=== PATIENT | female | born 1965 | race Caucasian/White ===

== ENCOUNTER 2017-10-11 17:05 | Inpatient (IN) | payer OTHER ==
[~2017-10-11] VITALS: Ht 170.2 cm; Wt 105.2 kg
--- NOTE | ~2017-10-11 | OP ---
PATIENT NAME: ARGENIS LANCE MEDICAL RECORD: [id number] :63 [facility] ADMISSION DATE:10/11/17 SURGEON: JING ALICEA MD DATE OF OPERATION: 10/24/2017 SURGEON: Jing Alicea MD ANESTHESIA: General endotracheal, Dr. Nation. OPERATION PERFORMED: 1. Right thoracotomy and decortication of right lung. 2. Flexible fiberoptic bronchoscopy. 3. Mediastinal lymphadenectomy. PREOPERATIVE DIAGNOSIS: Empyema, right chest. POSTOPERATIVE DIAGNOSIS: Empyema, right chest with trapped lower and middle lobes. FINDINGS: Flexible fiberoptic bronchoscopy demonstrated normal tracheobronchial tree. ESTIMATED BLOOD LOSS: Less than 200 mL. DESCRIPTION OF PROCEDURE: After informed consent, adequate preoperative medication, and evaluation, the patient was brought to the operating room and placed on the table in the supine position. After induction of general endotracheal anesthesia and application of appropriate monitoring devices, flexible fiberoptic bronchoscopy and placement of a double lumen tube, the patient was turned in a left lateral decubitus position and right chest prepped and draped in sterile field utilizing Betadine scrub, alcohol, and Betadine solution. Betadine-impregnated drape was also used. An oblique incision was made in the right posterolateral chest. Dissection was carried down the fascia. Hemostasis was maintained with electrocautery. The sixth interspace was opened. The intercostal muscles were divided and the pleural space gently entered which was fused. An area posteriorly was entered and utilizing sharp and blunt dissection, the pleural rind was removed from the chest wall. A retractor was then placed in the wound and the chest explored more closely and the remainder of the adhesions on the lateral wall over the lower lobe and diaphragm were mobilized. After mobilization of the lower lobe, attention was turned toward the middle lobe which was fused anteriorly to the mediastinal pleura. These adhesions were lysed from the chest wall. Attention was then turned toward the upper lobe, which was entered through a posterior area with few adhesions and the entire lung mobilized. There was a dense fibrous peel on the middle and lower lobes. Utilizing sharp and blunt dissection, the rind was removed. Portions of the rind were densely adherent to the visceral pleura. The chest was irrigated with copious amounts of antibiotic solution and normal saline. Hemostasis was assured. A large lymph node in the level 7 area was then mobilized and removed and sent to pathology. Cultures were taken early in the procedure from the right hemithorax. Chest was again irrigated. Instrument count and sponge count were correct times 2. Two #32 chest tubes were placed, one anteriorly and superiorly and one inferiorly and posteriorly. Chest was again irrigated. Instrument count and sponge count were correct times 2. Chest closed in layers utilizing #2 Vicryl OPERATIVE REPORT [id number] FARINA,ARGENIS pericostal sutures, #1 Vicryl on the muscle, 2-0 Vicryl on subcutaneous tissue and the skin was approximated with 3-0 subcuticular Vicryl. Sterile dressings were applied. The patient was turned in a supine position and underwent flexible fiberoptic bronchoscopy once again with a normal tracheobronchial tree and no excessive secretions. The patient was then awakened and transferred to the CV ICU in satisfactory condition. TRANSINT:[id number] Voice Confirmation ID: [id number] DOCUMENT ID: [id number] JING ALICEA MD at 1200 CC: [id number] DICTATION DATE: 10/24/17 1532 BLOG WRITER: 10/24/17 1812 ADM IN [facility] [address] [place] [address]
--- NOTE | ~2017-10-11 | EC ---
PATIENT:ARGENIS LANCE DATE OF SERVICE: 10/11/17 SEX: F MEDICAL RECORD: [id number] DATE OF : 63 LOCATION:[facility] AGE OF PATIENT: 52 ADMISSION DATE: 10/11/17 REFERRING PHYSICIAN: INTERPRETING PHYSICIAN: NIDIA LEE MD ECHOCARDIOGRAM REPORT ECHO CHARGES 5 ECHO LIMITED Date: 10/13 CLINICAL DIAGNOSIS: CHF ECHOCARDIOGRAPHIC MEASUREMENTS (adult normal given) AC root (d.<3.7cm) 4.0 cm LV Septum d (<1.2 cm> 1.6 cm Valve Excursion 1.5 cm LV Septum (systole) 1.9 cm Left Atria (s.<4.0cm> 3.2 cm LVPW d(<1.2cm) 1.9 cm RV (d.<2.3cm) 3.9 cm LVPW (sytole) 2.0 cm LV diastole(<5.6CM) 4.1 cm MV E-F(>70mm/sec) cm LV systole 2.6 cm LVOT Diameter cm MV exc.(>10mm) 1.9 cm Est.ejection fraction (50-75%) % DOPPLER: LVIT cm/sec A cm/sec E cm/sec LA cm/sec RVSP mmHg LVOT cm/sec AOP1/2T m/s Asc. Ao cm/sec RVOT cm/sec RA cm/sec PA cm/sec AV Gradient Peak mmHg AV Mean mmHg AV Area cm MV Gradient Peak mmHg MV Mean mmHg MV Area cm COMMENTS: Vice President Of Recruiting: Stephanie BERNARDO Travel Attendants: 3 Dr. Thompson TAPE# PACS Pericardial Effusion N DATE OF SERVICE: 10/13/2017 PROCEDURE: Echocardiogram. FINDINGS: 1. Left ventricular chamber size is within normal limits. Left ventricular systolic function is normal. Overall ejection fraction estimated at 60%. 2. Left atrium, right atrium, and right ventricle chamber sizes are within normal limits. 3. Valvular structures have normal structure and motion. ECHOCARDIOGRAM REPORT [id number] ARGENIS LANCE 4. Doppler interrogation reveals no significant valvular insufficiency or stenosis. 5. No evidence of pericardial effusion or left ventricular thrombus. TRANSINT:[id number] Voice Confirmation ID: [id number] DOCUMENT ID: [id number] NIDIA LEE MD at 0751 CC: [id number] DICTATION DATE: 10/13/17 1213 [place] ATTENDANT: 10/13/17 1230 ADM IN [facility] [address] [place] [id number]
--- NOTE | ~2017-10-11 | OP ---
PATIENT NAME: ARGENIS LANCE MEDICAL RECORD: [id number] :63 LOCATION:[facility] ADMISSION DATE:10/11/17 SURGEON: BOSSMAN THOMAS MD DATE OF OPERATION: 10/19/2017 PROCEDURE: Fiberoptic bronchoscopy. INDICATION: Ms. Lance was admitted with empyema of the right side. She has chest tube placement, but there was nonresolving pleural fluid. Fiberoptic bronchoscopy was carried out to look for any mucus plugging, endobronchial lesions. PROCEDURE: After obtaining conscious sedation with the help of TIVA, the fiberoptic bronchoscope was passed through the mouth. The epiglottis was normal. The vocal cords were normal, moving equally on phonation. The main trachea was normal. The german was sharp. The subsegment to the right upper lobe, right lower lobe, right middle lobe within normal range. There was a white yellowish mucus secretion, but there was no mucus plugging. The left main bronchus was normal. The subsegment to the left upper lobe, left lower lobe within normal range. No endobronchial lesion was seen. Specimen washing was obtained and sent for routine culture and sensitivity, AFB, and fungus. Overall, the patient tolerated the procedure very well. MONITORING: EKG, pulse, blood pressure, SpO2 were monitored throughout the procedure. TRANSINT:[id number] Voice Confirmation ID: [id number] DOCUMENT ID: [id number] BOSSMAN THOMAS MD at 1806 CC: [id number] DICTATION DATE: 10/19/17 1453 SKIVER MACHINE: 10/19/17 1518 DIS IN 11/01/17 [place] [id number] [place] [id number]
--- NOTE | ~2017-10-11 | CN ---
PATIENT NAME:ARGENIS HARRIS MEDICAL RECORD: [id number] : 63 LOCATION:[facility] ADMIT DATE: 10/11/17 ACCOUNT: [id number] CONSULTING PHYSICIAN: BOSSMAN THOMAS MD REFERRING PHYSICIAN: ANSELMO EMMANUEL MD DATE OF CONSULTATION: 10/19/2017 CONSULT REQUESTING PHYSICIAN: Junior Holguin DO REASON FOR CONSULTATION: Pneumonia, empyema. HISTORY OF PRESENT ILLNESS: Ms. Harris is a 52-year-old female who was transferred from another facility for possible cholecystitis. Chest radiograph showed she had pneumonia, underwent thoracentesis, it showed a LDH in 8000. Now, the patient does have shortness of breath, but the pleural fluid is not resolving with a chest tube. I was requested if I could do the bronchoscopy to look for any atelectasis. REVIEW OF SYSTEMS: As in history of present illness. PAST MEDICAL HISTORY: 1. COPD. 2. Hypertension. 3. Congestive heart failure. 4. Diabetes mellitus. PAST SURGICAL HISTORY: She has . ALLERGIES: No known drug allergy. PRESENT MEDICATIONS: RJMetricstech is reviewed. PERSONAL AND SOCIAL HISTORY: She is still a current everyday smoker. She is drinker. FAMILY HISTORY: Significant for cancer. PHYSICAL EXAMINATION: GENERAL: Now, the patient is lying comfortably in bed. She is not in acute distress. VITAL SIGNS: The blood pressure is 164/79, pulse is 75, respiration 18, temperature is 97.9, SpO2 95% on 4.5 liters nasal cannula. HEENT: Conjunctivae are pink. Sclerae are not icteric. NECK: Supple, no JVD. CHEST: The chest excursion is minimal on the right side. There is dullness on percussion with crackles. Chest tube is in place. HEART: Rhythm regular, normal sound, no murmur. ABDOMEN: Soft, bowel sounds present. No hepatosplenomegaly. RECTAL: Deferred. EXTREMITIES: No cyanosis, no clubbing, no pedal edema. SKIN: Warm, normal turgor. CENTRAL NERVOUS SYSTEM: The patient is awake and alert. There is no obvious cranial nerve abnormality. The gait was not tested. LABORATORY DATA: CBC: WBC 10.3, hemoglobin 10.2, hematocrit 31, the platelet CONSULT REPORT [id number] FARINA,ARGENIS count 407. Chemistry: Sodium 139, potassium 3.2, BUN is 10, creatinine 1.2. Pleural fluid, the protein is 5.6, the glucose is 6. LDH is 8138. IMPRESSION: 1. Acute hypoxic respiratory failure. 2. Pneumonia, right lower lobe. 3. Parapneumonic pleural effusion. 4. Empyema on the right side, status post thoracotomy chest tube placement. 5. Acute exacerbation of chronic obstructive pulmonary disease. 5. Cholecystitis. RECOMMENDATION: 1. Continue antibiotic per Dr. Hughes. 2. Albuterol and ipratropium nebulizer. 3. Bronchoscopy today. Consult Dr. Mcdaniels for possible decortication. 4. The patient counseled to quit smoking. Follow up labs and chest radiograph. Dr. Holguin, thank you for involving me in the care of Ms. Harris. TRANSINT:[id number] Voice Confirmation ID: [id number] DOCUMENT ID: [id number] BOSSMAN THOMAS MD at 1806 CC: [id number] DICTATION DATE: 10/19/17 1449 GEOPHYSICS SCIENTIST: 10/19/17 1522 DIS IN 11/01/17 [facility] [address] [place] [address]
[2017-10-12 04:57] VITALS: BP 158/90
[2017-10-12 05:13] VITALS: BP 135/70; BMI 36.1
[2017-10-12 05:47] LABS: BASOPHILS 0.1 % (0-2); EOSINOPHILS 0.2 % (0-7); HEMATOCRIT 34.6 % (36.0-48.0); HEMOGLOBIN 11.8 g/dL (12-16); IMMATURE GRANULOCYTES 0.6 % (0-5); LYMPHOCYTES 7.1 % (15-50); MCH 29.7 pg (26.0-34.0); MCHC 34.1 g/dL (31.0-37.0); MCV 87.2 fL (80.0-100.0); MEAN PLATELET VOLUME 11.1 fL (7.4-10.4); MONOCYTES 6.1 % (2-11); NEUTROPHILS 85.9 % (40-80); PLATELET COUNT 411 10x3/uL (130-400); RBC 3.97 10x6/uL (4.00-5.40); RDW 13.9 % (11.5-14.5); WBC 22.2 10x3/uL (4.8-10.8)
[2017-10-12 05:49] LABS: ANION GAP 9.7 mmol/L (8-16); BILIRUBIN - TOTAL 0.5 mg/dL (0.2-1.3); CALCIUM 9.3 mg/dL (8.5-10.1); CARBON DIOXIDE 32.7 mmol/L (21.0-32.0); CREATININE - SERUM 1.3 mg/dL (0.6-1.3); POTASSIUM - SERUM 3.4 mmol/L (3.5-5.1); PROTEIN - SERUM 7.9 g/dL (6.4-8.2)
[2017-10-12 07:43] VITALS: BP 162/75
[2017-10-12] MEDS ORDERED: NORVASC10 MG PO (10:14)
[2017-10-12] MEDS ORDERED: HCTZ25 MG PO (10:14)
[2017-10-12] MEDS ORDERED: SPIRIVA18 MCG INH (10:14)
[2017-10-12] MEDS ORDERED: SYMBICORT 80-10.2 GM INH (10:15)
[2017-10-12] MEDS ORDERED: COZAAR100 MG PO (10:15)
[2017-10-12] MEDS ORDERED: COREG12.5 MG PO (10:16)
[2017-10-12] MEDS ORDERED: VENTOLIN HFA AER INH (10:17)
[2017-10-12 12:28] VITALS: BP 146/77
[2017-10-12 15:20] LABS: LIPASE 138 U/L (73-393); PRO BNP 842 pg/mL (0-125)
[2017-10-12 15:49] VITALS: BP 163/82
[2017-10-12 20:53] VITALS: BP 103/52
[2017-10-13 01:38] VITALS: BP 119/73
[2017-10-13 04:41] LABS: HEMATOCRIT 33.2 % (36.0-48.0); HEMOGLOBIN 11.2 g/dL (12-16); MCH 29.2 pg (26.0-34.0); MCHC 33.7 g/dL (31.0-37.0); MCV 86.5 fL (80.0-100.0); MEAN PLATELET VOLUME 11.1 fL (7.4-10.4); PLATELET COUNT 425 10x3/uL (130-400); RBC 3.84 10x6/uL (4.00-5.40); WBC 23.6 10x3/uL (4.8-10.8)
[2017-10-13 04:42] LABS: APTT 33.3 SECONDS (22.8-39.4); INR 1.17 (0.85-1.17); PROTIME 14.5 SECONDS (11.6-15.0)
[2017-10-13 04:50] LABS: CARBON DIOXIDE 30.6 mmol/L (21.0-32.0); CREATININE - SERUM 1.4 mg/dL (0.6-1.3); POTASSIUM - SERUM 3.6 mmol/L (3.5-5.1)
[2017-10-13 04:56] VITALS: BP 124/74
[2017-10-13 05:22] LABS: LYMPHOCYTES 14 % (15-50); MONOCYTES 3 % (2-11); NEUTROPHILS 81 % (40-80); PLATELET ESTIMATE NORMAL
[2017-10-13 07:51] VITALS: BP 117/71
[2017-10-13 12:10] VITALS: BP 112/76
[2017-10-13 15:39] VITALS: BP 117/84
[2017-10-13 20:00] VITALS: BP 109/74
[2017-10-14] VITALS: BP 101/43
[2017-10-14 04:00] VITALS: BP 100/61
[2017-10-14 08:10] VITALS: BP 102/63
[2017-10-14 12:40] VITALS: BP 119/61
[2017-10-14 15:43] LABS: PROTEIN - BODY FLUID 5.6 G/DL
[2017-10-14 19:34] LABS: MACROPHAGES BF 7 %; MESOTHELIALS BF 1 %; NEUT - BF 90 %
[2017-10-15] VITALS: BP 103/55
[2017-10-15 04:00] VITALS: BP 103/53
[2017-10-15 09:21] VITALS: BP 111/58
[2017-10-15 14:12] VITALS: BP 114/73
[2017-10-15 17:58] VITALS: BP 107/50
[2017-10-15 19:16] LABS: APPEARANCE HAZY (CLEAR); BILIRUBIN NEGATIVE (NEGATIVE); COLOR YELLOW (YELLOW); GLUCOSE NEGATIVE (NEGATIVE); KETONE NEGATIVE (NEGATIVE); NITRITE NEGATIVE (NEGATIVE); PROTEIN TRACE mg/dL (NEGATIVE); UROBILINOGEN NORMAL (NORMAL)
[2017-10-15 19:21] LABS: BACTERIA FEW /hpf (NONE SEEN); EPITHELIAL CELLS 0-5 /hpf (0-5); RED CELLS - URINE 0-5 /hpf (0-5); WHITE CELLS - URINE 0-5 /hpf (0-5)
[2017-10-15 19:31] LABS: URIC ACID CRYSTALS 25-50 /hpf (NONE SEEN)
[2017-10-15 21:15] VITALS: BP 138/64
[2017-10-16 04:33] VITALS: BP 139/86
[2017-10-16 07:09] LABS: ANION GAP 8.5 mmol/L (8-16); CALCIUM 8.4 mg/dL (8.5-10.1); CARBON DIOXIDE 31.5 mmol/L (21.0-32.0); CREATININE - SERUM 1.4 mg/dL (0.6-1.3)
[2017-10-16 07:49] LABS: BASOPHILS 0.3 % (0-2); EOSINOPHILS 1.2 % (0-7); HEMATOCRIT 32.7 % (36.0-48.0); HEMOGLOBIN 10.9 g/dL (12-16); IMMATURE GRANULOCYTES 1.6 % (0-5); LYMPHOCYTES 16.7 % (15-50); MCH 29.1 pg (26.0-34.0); MCHC 33.3 g/dL (31.0-37.0); MCV 87.2 fL (80.0-100.0); MEAN PLATELET VOLUME 11.2 fL (7.4-10.4); MONOCYTES 7.8 % (2-11); NEUTROPHILS 72.4 % (40-80); PLATELET COUNT 420 10x3/uL (130-400); RBC 3.75 10x6/uL (4.00-5.40); RDW 14.2 % (11.5-14.5); WBC 10.4 10x3/uL (4.8-10.8)
[2017-10-16 08:48] VITALS: BP 120/63
[2017-10-16 11:51] VITALS: BP 118/73
[2017-10-16 16:58] VITALS: BP 119/72
[2017-10-16 21:36] VITALS: BP 139/66
[2017-10-17 02:15] VITALS: BP 117/74
[2017-10-17 04:39] VITALS: BP 112/68
[2017-10-17 07:47] LABS: BASOPHILS 0.3 % (0-2); EOSINOPHILS 1.2 % (0-7); HEMATOCRIT 30.4 % (36.0-48.0); HEMOGLOBIN 9.9 g/dL (12-16); IMMATURE GRANULOCYTES 1.2 % (0-5); LYMPHOCYTES 17.5 % (15-50); MCH 28.5 pg (26.0-34.0); MCHC 32.6 g/dL (31.0-37.0); MCV 87.6 fL (80.0-100.0); MEAN PLATELET VOLUME 10.6 fL (7.4-10.4); MONOCYTES 7.1 % (2-11); NEUTROPHILS 72.7 % (40-80); PLATELET COUNT 393 10x3/uL (130-400); RBC 3.47 10x6/uL (4.00-5.40); RDW 14.3 % (11.5-14.5); WBC 10.5 10x3/uL (4.8-10.8)
[2017-10-17 07:50] LABS: ANION GAP 10.7 mmol/L (8-16); CALCIUM 8.1 mg/dL (8.5-10.1); CARBON DIOXIDE 30.9 mmol/L (21.0-32.0); CREATININE - SERUM 1.1 mg/dL (0.6-1.3)
[2017-10-17 07:55] LABS: POTASSIUM - SERUM 3.6 mmol/L (3.5-5.1)
[2017-10-17 09:52] VITALS: BP 122/72
[2017-10-17 14:54] VITALS: BP 151/73
[2017-10-17 18:48] VITALS: BP 123/66
[2017-10-18 01:35] VITALS: BP 146/72
[2017-10-18 04:00] VITALS: BP 132/69
[2017-10-18 05:11] LABS: BASOPHILS 0.4 % (0-2); EOSINOPHILS 2.1 % (0-7); HEMATOCRIT 29.1 % (36.0-48.0); HEMOGLOBIN 9.4 g/dL (12-16); IMMATURE GRANULOCYTES 1.3 % (0-5); LYMPHOCYTES 15.1 % (15-50); MCH 28.5 pg (26.0-34.0); MCHC 32.3 g/dL (31.0-37.0); MCV 88.2 fL (80.0-100.0); MEAN PLATELET VOLUME 10.4 fL (7.4-10.4); MONOCYTES 7.2 % (2-11); NEUTROPHILS 73.9 % (40-80); PLATELET COUNT 372 10x3/uL (130-400); RDW 14.3 % (11.5-14.5); WBC 10.5 10x3/uL (4.8-10.8)
[2017-10-18 05:30] LABS: ANION GAP 10.4 mmol/L (8-16); CALCIUM 8.5 mg/dL (8.5-10.1); CARBON DIOXIDE 29.5 mmol/L (21.0-32.0); CREATININE - SERUM 1.2 mg/dL (0.6-1.3)
[2017-10-18 05:32] LABS: POTASSIUM - SERUM 2.9 mmol/L (3.5-5.1)
[2017-10-18 09:30] VITALS: BP 149/76
[2017-10-18 09:54] LABS: MAGNESIUM - SERUM 1.5 mg/dL (1.8-2.4); PHOSPHOROUS 3.7 mg/dL (2.5-4.9)
[2017-10-18 13:27] VITALS: BP 152/72
[2017-10-18 17:22] LABS: BASOPHILS 0.3 % (0-2); EOSINOPHILS 1.7 % (0-7); HEMATOCRIT 31.5 % (36.0-48.0); HEMOGLOBIN 10.4 g/dL (12-16); IMMATURE GRANULOCYTES 1.1 % (0-5); LYMPHOCYTES 17.1 % (15-50); MCH 29.1 pg (26.0-34.0); MEAN PLATELET VOLUME 10.7 fL (7.4-10.4); MONOCYTES 5.4 % (2-11); NEUTROPHILS 74.4 % (40-80); PLATELET COUNT 377 10x3/uL (130-400); RBC 3.58 10x6/uL (4.00-5.40); RDW 14.3 % (11.5-14.5); WBC 11.1 10x3/uL (4.8-10.8)
[2017-10-18 17:32] LABS: APTT 23.9 SECONDS (22.8-39.4); INR 1.06 (0.85-1.17); PROTIME 13.4 SECONDS (11.6-15.0)
[2017-10-18 20:00] VITALS: BP 118/67
[2017-10-19 03:00] VITALS: BP 114/60
[2017-10-19 06:26] LABS: BASOPHILS 0.5 % (0-2); HEMOGLOBIN 10.2 g/dL (12-16); IMMATURE GRANULOCYTES 1.1 % (0-5); LYMPHOCYTES 18.7 % (15-50); MCHC 32.9 g/dL (31.0-37.0); MCV 88.1 fL (80.0-100.0); MEAN PLATELET VOLUME 10.8 fL (7.4-10.4); MONOCYTES 8.1 % (2-11); NEUTROPHILS 69.6 % (40-80); PLATELET COUNT 407 10x3/uL (130-400); RBC 3.52 10x6/uL (4.00-5.40); RDW 14.9 % (11.5-14.5); WBC 10.3 10x3/uL (4.8-10.8)
[2017-10-19 06:40] LABS: ANION GAP 10.5 mmol/L (8-16); CALCIUM 8.7 mg/dL (8.5-10.1); CARBON DIOXIDE 31.7 mmol/L (21.0-32.0); CREATININE - SERUM 1.2 mg/dL (0.6-1.3); POTASSIUM - SERUM 3.2 mmol/L (3.5-5.1)
[2017-10-19 09:35] VITALS: BP 164/79
[2017-10-19 14:51] VITALS: BMI 36.0
[2017-10-19 15:30] VITALS: BP 113/53
[2017-10-19 20:00] VITALS: BP 131/67
[2017-10-19 20:47] VITALS: Ht 170.2 cm; Wt 105.2 kg
[2017-10-20 04:00] VITALS: BP 142/71
[2017-10-20 05:42] LABS: BASOPHILS 0.6 % (0-2); EOSINOPHILS 2.4 % (0-7); HEMATOCRIT 32.4 % (36.0-48.0); HEMOGLOBIN 10.7 g/dL (12-16); IMMATURE GRANULOCYTES 0.6 % (0-5); LYMPHOCYTES 19.1 % (15-50); MCV 87.8 fL (80.0-100.0); MEAN PLATELET VOLUME 10.7 fL (7.4-10.4); MONOCYTES 6.5 % (2-11); NEUTROPHILS 70.8 % (40-80); PLATELET COUNT 445 10x3/uL (130-400); RBC 3.69 10x6/uL (4.00-5.40); RDW 14.6 % (11.5-14.5); WBC 10.4 10x3/uL (4.8-10.8)
[2017-10-20 06:03] LABS: ANION GAP 12.1 mmol/L (8-16); CALCIUM 8.8 mg/dL (8.5-10.1); CARBON DIOXIDE 28.3 mmol/L (21.0-32.0); CREATININE - SERUM 1.2 mg/dL (0.6-1.3); POTASSIUM - SERUM 3.4 mmol/L (3.5-5.1)
[2017-10-20 08:02] VITALS: BP 133/73
[2017-10-20 15:44] VITALS: BP 135/66
[2017-10-20 20:00] VITALS: BP 140/83
[2017-10-20 21:08] LABS: AFB SPECIMEN PROCESSING Concentration (())
[2017-10-21] VITALS: BP 147/77
[2017-10-21 04:00] VITALS: BP 119/56
[2017-10-21 05:05] LABS: BASOPHILS 0.6 % (0-2); EOSINOPHILS 2.1 % (0-7); HEMATOCRIT 31.7 % (36.0-48.0); HEMOGLOBIN 10.5 g/dL (12-16); IMMATURE GRANULOCYTES 0.6 % (0-5); MCHC 33.1 g/dL (31.0-37.0); MCV 87.6 fL (80.0-100.0); MEAN PLATELET VOLUME 10.5 fL (7.4-10.4); MONOCYTES 7.5 % (2-11); NEUTROPHILS 73.2 % (40-80); PLATELET COUNT 432 10x3/uL (130-400); RBC 3.62 10x6/uL (4.00-5.40); RDW 14.6 % (11.5-14.5); WBC 10.1 10x3/uL (4.8-10.8)
[2017-10-21 05:28] LABS: ALBUMIN 1.8 g/dL (3.4-5.0); ANION GAP 13.4 mmol/L (8-16); BILIRUBIN - TOTAL 0.2 mg/dL (0.2-1.3); CALCIUM 8.8 mg/dL (8.5-10.1); CARBON DIOXIDE 27.1 mmol/L (21.0-32.0); CREATININE - SERUM 1.3 mg/dL (0.6-1.3); POTASSIUM - SERUM 3.5 mmol/L (3.5-5.1); PROTEIN - SERUM 8.3 g/dL (6.4-8.2)
[2017-10-21 08:44] VITALS: BP 142/71
[2017-10-21 12:57] VITALS: BP 127/69
[2017-10-21 13:17] LABS: FUNGUS STAIN Final report (())
[2017-10-21 16:54] VITALS: BP 176/87
[2017-10-21 19:37] VITALS: BP 132/67
[2017-10-22 00:08] VITALS: BP 134/76
[2017-10-22 04:19] VITALS: BP 132/75
[2017-10-22 06:08] LABS: BASOPHILS 0.7 % (0-2); EOSINOPHILS 2.8 % (0-7); HEMATOCRIT 30.6 % (36.0-48.0); HEMOGLOBIN 9.9 g/dL (12-16); IMMATURE GRANULOCYTES 0.5 % (0-5); LYMPHOCYTES 16.7 % (15-50); MCH 28.4 pg (26.0-34.0); MCHC 32.4 g/dL (31.0-37.0); MCV 87.7 fL (80.0-100.0); MEAN PLATELET VOLUME 10.6 fL (7.4-10.4); MONOCYTES 7.9 % (2-11); NEUTROPHILS 71.4 % (40-80); PLATELET COUNT 407 10x3/uL (130-400); RBC 3.49 10x6/uL (4.00-5.40); RDW 14.8 % (11.5-14.5); WBC 9.6 10x3/uL (4.8-10.8)
[2017-10-22 06:34] LABS: ALBUMIN 1.8 g/dL (3.4-5.0); ANION GAP 11.6 mmol/L (8-16); BILIRUBIN - TOTAL 0.2 mg/dL (0.2-1.3); CALCIUM 8.7 mg/dL (8.5-10.1); CREATININE - SERUM 1.3 mg/dL (0.6-1.3); POTASSIUM - SERUM 3.6 mmol/L (3.5-5.1); PROTEIN - SERUM 7.7 g/dL (6.4-8.2)
[2017-10-22 09:04] VITALS: BP 129/74
[2017-10-22 13:23] VITALS: BP 125/64
[2017-10-22 16:58] VITALS: BP 135/84
[2017-10-22 19:36] VITALS: BP 164/68
[2017-10-23] VITALS: BP 142/70
[2017-10-23 04:00] VITALS: BP 141/66
[2017-10-23 06:19] LABS: BASOPHILS 1.2 % (0-2); EOSINOPHILS 2.5 % (0-7); HEMOGLOBIN 10.3 g/dL (12-16); IMMATURE GRANULOCYTES 0.2 % (0-5); LYMPHOCYTES 17.2 % (15-50); MCH 28.4 pg (26.0-34.0); MCHC 32.2 g/dL (31.0-37.0); MCV 88.2 fL (80.0-100.0); MEAN PLATELET VOLUME 10.8 fL (7.4-10.4); MONOCYTES 9.8 % (2-11); NEUTROPHILS 69.1 % (40-80); PLATELET COUNT 428 10x3/uL (130-400); RBC 3.63 10x6/uL (4.00-5.40); RDW 14.7 % (11.5-14.5); WBC 9.6 10x3/uL (4.8-10.8)
[2017-10-23 06:42] LABS: ALBUMIN 1.9 g/dL (3.4-5.0); ANION GAP 11.1 mmol/L (8-16); BILIRUBIN - TOTAL 0.2 mg/dL (0.2-1.3); CALCIUM 9.1 mg/dL (8.5-10.1); CARBON DIOXIDE 29.8 mmol/L (21.0-32.0); CREATININE - SERUM 1.3 mg/dL (0.6-1.3); POTASSIUM - SERUM 3.9 mmol/L (3.5-5.1); PROTEIN - SERUM 8.1 g/dL (6.4-8.2)
[2017-10-23 08:33] VITALS: BP 120/66
[2017-10-23 11:57] VITALS: BP 157/75
[2017-10-23 16:54] LABS: HEMATOCRIT 29.3 % (36.0-48.0); HEMOGLOBIN 9.6 g/dL (12-16); MCH 28.7 pg (26.0-34.0); MCHC 32.8 g/dL (31.0-37.0); MCV 87.7 fL (80.0-100.0); MEAN PLATELET VOLUME 10.4 fL (7.4-10.4); RBC 3.34 10x6/uL (4.00-5.40); RDW 14.7 % (11.5-14.5)
[2017-10-23 17:00] VITALS: BP 148/65
[2017-10-23 17:07] LABS: INR 1.2 (0.85-1.17); PROTIME 14.8 SECONDS (11.6-15.0)
[2017-10-23 17:20] LABS: ALBUMIN 1.8 g/dL (3.4-5.0); ANION GAP 11.9 mmol/L (8-16); BILIRUBIN - TOTAL 0.14 mg/dL (0.2-1.3); CALCIUM 8.4 mg/dL (8.5-10.1); CARBON DIOXIDE 27.9 mmol/L (21.0-32.0); CREATININE - SERUM 1.3 mg/dL (0.6-1.3); POTASSIUM - SERUM 3.8 mmol/L (3.5-5.1); PROTEIN - SERUM 7.4 g/dL (6.4-8.2)
[2017-10-23 19:59] VITALS: BP 140/74
[2017-10-23 20:25] LABS: APPEARANCE CLEAR (CLEAR); BILIRUBIN NEGATIVE (NEGATIVE); COLOR YELLOW (YELLOW); GLUCOSE NEGATIVE (NEGATIVE); KETONE NEGATIVE (NEGATIVE); NITRITE NEGATIVE (NEGATIVE); PROTEIN NEGATIVE (NEGATIVE); SPECIFIC GRAVITY 1.015 (1.005-1.020); UROBILINOGEN NORMAL (NORMAL)
[2017-10-24] VITALS (32 sets, daily range): BP systolic 79–142; BP diastolic 41–72
[2017-10-24 05:38] LABS: BASOPHILS 0.8 % (0-2); EOSINOPHILS 2.7 % (0-7); HEMATOCRIT 29.7 % (36.0-48.0); HEMOGLOBIN 9.6 g/dL (12-16); IMMATURE GRANULOCYTES 0.2 % (0-5); LYMPHOCYTES 18.5 % (15-50); MCH 28.4 pg (26.0-34.0); MCHC 32.3 g/dL (31.0-37.0); MCV 87.9 fL (80.0-100.0); MEAN PLATELET VOLUME 10.6 fL (7.4-10.4); MONOCYTES 7.1 % (2-11); NEUTROPHILS 70.7 % (40-80); PLATELET COUNT 414 10x3/uL (130-400); RBC 3.38 10x6/uL (4.00-5.40); RDW 14.9 % (11.5-14.5); WBC 8.8 10x3/uL (4.8-10.8)
[2017-10-24 05:59] LABS: ALBUMIN 1.8 g/dL (3.4-5.0); ANION GAP 13.9 mmol/L (8-16); BILIRUBIN - TOTAL 0.2 mg/dL (0.2-1.3); CALCIUM 8.8 mg/dL (8.5-10.1); CREATININE - SERUM 1.2 mg/dL (0.6-1.3); POTASSIUM - SERUM 3.9 mmol/L (3.5-5.1)
[2017-10-24 21:47] LABS: HEMATOCRIT 28.5 % (36.0-48.0); HEMOGLOBIN 9.3 g/dL (12-16); MCH 28.8 pg (26.0-34.0); MCHC 32.6 g/dL (31.0-37.0); MCV 88.2 fL (80.0-100.0); MEAN PLATELET VOLUME 10.5 fL (7.4-10.4); RBC 3.23 10x6/uL (4.00-5.40); RDW 14.8 % (11.5-14.5)
[2017-10-24 21:57] LABS: WBC 19.5 10x3/uL (4.8-10.8)
[2017-10-25] VITALS (26 sets, daily range): BP systolic 101–122; BP diastolic 39–68
[2017-10-25 05:27] LABS: BASOPHILS 0.1 % (0-2); EOSINOPHILS 0 % (0-7); HEMATOCRIT 26.7 % (36.0-48.0); HEMOGLOBIN 8.5 g/dL (12-16); IMMATURE GRANULOCYTES 0.2 % (0-5); LYMPHOCYTES 5.6 % (15-50); MCH 28.1 pg (26.0-34.0); MCHC 31.8 g/dL (31.0-37.0); MCV 88.4 fL (80.0-100.0); MEAN PLATELET VOLUME 10.5 fL (7.4-10.4); MONOCYTES 1.3 % (2-11); NEUTROPHILS 92.8 % (40-80); RBC 3.02 10x6/uL (4.00-5.40)
[2017-10-25 05:34] LABS: PLATELET COUNT 388 10x3/uL (130-400); WBC 13.4 10x3/uL (4.8-10.8)
[2017-10-25 06:53] LABS: ALBUMIN 1.6 g/dL (3.4-5.0); ANION GAP 15.2 mmol/L (8-16); BILIRUBIN - TOTAL 0.27 mg/dL (0.2-1.3); CALCIUM 8.1 mg/dL (8.5-10.1); CARBON DIOXIDE 25.1 mmol/L (21.0-32.0); MAGNESIUM - SERUM 1.9 mg/dL (1.8-2.4); PHOSPHOROUS 5.9 mg/dL (2.5-4.9); POTASSIUM - SERUM 4.3 mmol/L (3.5-5.1); PROTEIN - SERUM 6.8 g/dL (6.4-8.2)
[2017-10-25 07:00] LABS: CREATININE - SERUM 1.7 mg/dL (0.6-1.3)
[2017-10-25 13:17] LABS: AFB SPECIMEN PROCESSING Concentration (())
[2017-10-26] VITALS (25 sets, daily range): BP systolic 105–157; BP diastolic 49–101
[2017-10-26 06:29] LABS: BASOPHILS 0.1 % (0-2); EOSINOPHILS 0.2 % (0-7); HEMATOCRIT 21.8 % (36.0-48.0); IMMATURE GRANULOCYTES 0.3 % (0-5); LYMPHOCYTES 13.7 % (15-50); MCH 28.7 pg (26.0-34.0); MCHC 32.1 g/dL (31.0-37.0); MCV 89.3 fL (80.0-100.0); MEAN PLATELET VOLUME 10.3 fL (7.4-10.4); MONOCYTES 7.1 % (2-11); NEUTROPHILS 78.6 % (40-80); PLATELET COUNT 341 10x3/uL (130-400); RBC 2.44 10x6/uL (4.00-5.40); RDW 15.2 % (11.5-14.5); WBC 13.7 10x3/uL (4.8-10.8)
[2017-10-26 06:52] LABS: ALBUMIN 1.4 g/dL (3.4-5.0); ANION GAP 9.6 mmol/L (8-16); BILIRUBIN - TOTAL 0.1 mg/dL (0.2-1.3); CALCIUM 8.1 mg/dL (8.5-10.1); CARBON DIOXIDE 28.2 mmol/L (21.0-32.0); CREATININE - SERUM 1.5 mg/dL (0.6-1.3); MAGNESIUM - SERUM 2.2 mg/dL (1.8-2.4); POTASSIUM - SERUM 3.8 mmol/L (3.5-5.1); PROTEIN - SERUM 6.6 g/dL (6.4-8.2)
[2017-10-26 06:54] LABS: PHOSPHOROUS 3.5 mg/dL (2.5-4.9)
[2017-10-26 13:19] LABS: FUNGUS STAIN Final report (())
[2017-10-26 14:24] LABS: FUNGUS CULTURE RESULT 1 Candida albicans (())
[2017-10-27] VITALS (22 sets, daily range): BP systolic 113–159; BP diastolic 51–82
[2017-10-27 05:57] LABS: BASOPHILS 0.7 % (0-2); EOSINOPHILS 1.8 % (0-7); HEMOGLOBIN 8.3 g/dL (12-16); IMMATURE GRANULOCYTES 0.1 % (0-5); LYMPHOCYTES 22.1 % (15-50); MCH 28.1 pg (26.0-34.0); MCHC 31.7 g/dL (31.0-37.0); MCV 88.8 fL (80.0-100.0); MEAN PLATELET VOLUME 10.1 fL (7.4-10.4); MONOCYTES 8.4 % (2-11); NEUTROPHILS 66.9 % (40-80); PLATELET COUNT 333 10x3/uL (130-400); RDW 15.2 % (11.5-14.5); WBC 8.4 10x3/uL (4.8-10.8)
[2017-10-27 05:58] LABS: HEMATOCRIT 26.2 % (36.0-48.0); RBC 2.95 10x6/uL (4.00-5.40)
[2017-10-27 06:07] LABS: % SATURATION 15 % (15-55); IRON 22 ug/dl (35-150); TOTAL IRON BIND CAPACITY 141 ug/dl (260-445); UNSAT IRON BIND CAPACITY 119 ug/dl (150-375)
[2017-10-27 06:24] LABS: ALBUMIN 1.6 g/dL (3.4-5.0); ANION GAP 9.1 mmol/L (8-16); BILIRUBIN - TOTAL 0.2 mg/dL (0.2-1.3); CALCIUM 8.5 mg/dL (8.5-10.1); CARBON DIOXIDE 31.7 mmol/L (21.0-32.0); CREATININE - SERUM 1.2 mg/dL (0.6-1.3); POTASSIUM - SERUM 3.8 mmol/L (3.5-5.1); PROTEIN - SERUM 6.9 g/dL (6.4-8.2)
[2017-10-28] VITALS (23 sets, daily range): BP systolic 121–180; BP diastolic 50–78
[2017-10-28 06:17] LABS: BASOPHILS 0.8 % (0-2); HEMATOCRIT 29.1 % (36.0-48.0); HEMOGLOBIN 9.5 g/dL (12-16); IMMATURE GRANULOCYTES 0.1 % (0-5); LYMPHOCYTES 20.1 % (15-50); MCH 29.1 pg (26.0-34.0); MCHC 32.6 g/dL (31.0-37.0); MEAN PLATELET VOLUME 10.7 fL (7.4-10.4); MONOCYTES 7.8 % (2-11); NEUTROPHILS 68.2 % (40-80); PLATELET COUNT 342 10x3/uL (130-400); RBC 3.27 10x6/uL (4.00-5.40); RDW 14.4 % (11.5-14.5); WBC 7.9 10x3/uL (4.8-10.8)
[2017-10-28 06:26] LABS: ANION GAP 7.9 mmol/L (8-16); CALCIUM 9.2 mg/dL (8.5-10.1); CARBON DIOXIDE 33.5 mmol/L (21.0-32.0); CREATININE - SERUM 1.1 mg/dL (0.6-1.3); MAGNESIUM - SERUM 1.7 mg/dL (1.8-2.4); PHOSPHOROUS 3.6 mg/dL (2.5-4.9); POTASSIUM - SERUM 3.4 mmol/L (3.5-5.1)
[2017-10-29] VITALS (24 sets, daily range): BP systolic 128–171; BP diastolic 58–88
[2017-10-29 06:49] LABS: ANION GAP 10.2 mmol/L (8-16); CALCIUM 9.5 mg/dL (8.5-10.1); CARBON DIOXIDE 32.7 mmol/L (21.0-32.0); CREATININE - SERUM 1.1 mg/dL (0.6-1.3); POTASSIUM - SERUM 3.9 mmol/L (3.5-5.1)
[2017-10-29 06:50] LABS: HEMATOCRIT 31.5 % (36.0-48.0); HEMOGLOBIN 10.3 g/dL (12-16); MCH 28.9 pg (26.0-34.0); MCHC 32.7 g/dL (31.0-37.0); MCV 88.5 fL (80.0-100.0); MEAN PLATELET VOLUME 10.8 fL (7.4-10.4); RBC 3.56 10x6/uL (4.00-5.40); RDW 14.4 % (11.5-14.5); WBC 8.1 10x3/uL (4.8-10.8)
[2017-10-30] VITALS (18 sets, daily range): BP systolic 126–165; BP diastolic 56–94
[2017-10-30 06:07] LABS: EOSINOPHILS 4.5 % (0-7); HEMATOCRIT 29.7 % (36.0-48.0); HEMOGLOBIN 9.7 g/dL (12-16); IMMATURE GRANULOCYTES 0.3 % (0-5); MCH 28.9 pg (26.0-34.0); MCHC 32.7 g/dL (31.0-37.0); MCV 88.4 fL (80.0-100.0); MEAN PLATELET VOLUME 10.6 fL (7.4-10.4); MONOCYTES 9.3 % (2-11); NEUTROPHILS 64.9 % (40-80); PLATELET COUNT 325 10x3/uL (130-400); RBC 3.36 10x6/uL (4.00-5.40); RDW 14.5 % (11.5-14.5); WBC 7.8 10x3/uL (4.8-10.8)
[2017-10-30 06:26] LABS: ANION GAP 9.5 mmol/L (8-16); CALCIUM 9.1 mg/dL (8.5-10.1); CARBON DIOXIDE 33.1 mmol/L (21.0-32.0); CREATININE - SERUM 1.1 mg/dL (0.6-1.3); POTASSIUM - SERUM 3.6 mmol/L (3.5-5.1)
[2017-10-31 00:58] VITALS: BP 185/77
[2017-10-31 04:05] VITALS: BP 154/80
[2017-10-31 08:25] VITALS: BP 141/77
[2017-10-31 11:12] LABS: BASOPHILS 1.2 % (0-2); EOSINOPHILS 4.9 % (0-7); HEMATOCRIT 28.8 % (36.0-48.0); HEMOGLOBIN 9.1 g/dL (12-16); IMMATURE GRANULOCYTES 0.1 % (0-5); LYMPHOCYTES 19.4 % (15-50); MCH 27.9 pg (26.0-34.0); MCHC 31.6 g/dL (31.0-37.0); MCV 88.3 fL (80.0-100.0); MONOCYTES 8.9 % (2-11); NEUTROPHILS 65.5 % (40-80); PLATELET COUNT 347 10x3/uL (130-400); RBC 3.26 10x6/uL (4.00-5.40); RDW 14.7 % (11.5-14.5); WBC 7.6 10x3/uL (4.8-10.8)
[2017-10-31 11:40] LABS: ALBUMIN 1.8 g/dL (3.4-5.0); ANION GAP 11.4 mmol/L (8-16); BILIRUBIN - TOTAL 0.2 mg/dL (0.2-1.3); CALCIUM 8.7 mg/dL (8.5-10.1); CREATININE - SERUM 1.1 mg/dL (0.6-1.3); POTASSIUM - SERUM 3.4 mmol/L (3.5-5.1); PROTEIN - SERUM 7.3 g/dL (6.4-8.2)
[2017-10-31 13:22] VITALS: BP 153/84
[2017-10-31 16:55] VITALS: BP 159/73
[2017-10-31 20:00] VITALS: BP 155/77
[2017-11-01 00:18] VITALS: BP 175/72
[2017-11-01 04:10] VITALS: BP 157/79
[2017-11-01 05:41] LABS: EOSINOPHILS 4.3 % (0-7); IMMATURE GRANULOCYTES 0.1 % (0-5); LYMPHOCYTES 19.4 % (15-50); MCH 28.5 pg (26.0-34.0); MCHC 32.3 g/dL (31.0-37.0); MCV 88.3 fL (80.0-100.0); MONOCYTES 11.4 % (2-11); NEUTROPHILS 63.8 % (40-80); PLATELET COUNT 411 10x3/uL (130-400); RBC 3.51 10x6/uL (4.00-5.40); RDW 14.9 % (11.5-14.5); WBC 8.1 10x3/uL (4.8-10.8)
[2017-11-01 05:48] LABS: BILIRUBIN - TOTAL 0.21 mg/dL (0.2-1.3); CALCIUM 9.3 mg/dL (8.5-10.1); CARBON DIOXIDE 31.8 mmol/L (21.0-32.0); CREATININE - SERUM 1.1 mg/dL (0.6-1.3); POTASSIUM - SERUM 3.8 mmol/L (3.5-5.1); PROTEIN - SERUM 8.2 g/dL (6.4-8.2)
[2017-11-01 08:19] VITALS: BP 153/76
[2017-11-01] MEDS ORDERED: QUESTRAN PACK4 G/PKT PO (10:55)
[2017-11-01] MEDS ORDERED: HYDRALAZINE HCL50 MG PO (10:56)
[2017-11-01] MEDS ORDERED: CARAFATE1 G PO (10:56)
[2017-11-01] MEDS ORDERED: MULTI-DAY VITAM1 TAB PO (10:56)
[2017-11-01] MEDS ORDERED: MUCINEX DM ER1 EAC1 PO (10:56)
[2017-11-01] MEDS ORDERED: NICODERM C1 PATCH .1 TRANSDERM (10:57)
[2017-11-01] MEDS ORDERED: BROVANA15 MCG/2 M INH (10:58)
[2017-11-01] MEDS ORDERED: IPRAT-ALBUT 0.5-3 ML UPD (10:58)
[2017-11-01] MEDS ORDERED: AUGMENTIN 875-11 TAB PO (11:04)
[2017-11-16 06:15] LABS: FUNGUS MYCOLOGY CULTURE Final report (())
[2017-11-21 11:14] LABS: FUNGUS MYCOLOGY CULTURE Final report (())
[2017-12-09 13:20] LABS: ACID FAST CULTURE Negative (()); ACID FAST SMEAR Negative (())
[2017-12-16 12:19] LABS: ACID FAST CULTURE Negative (()); ACID FAST SMEAR Negative (())
== END 2017-11-01 14:02 | disposition home or self-care (01) | DRG 853 ==
LOC: D.MS 17:05 → D.CVICU 22:17 → D.MS 22:17 → D.CVICU 10-24 12:21 → D.MS 10-30 17:54
PROVIDERS: Emergency Medicine; Family Medicine; Internal Medicine Cardiovascular Disease; Internal Medicine Nephrology; Internal Medicine Pulmonary Disease; Radiology Diagnostic Radiology
PROC: 0W9930Z Drainage of Right Pleural Cavity with Drainage Device, Percutaneous Approach (ICD-10-PCS; principal; 2017-10-14 13:25)
PROC: 0BNF0ZZ Release Right Lower Lung Lobe, Open Approach (ICD-10-PCS; 2017-10-24)
PROC: 0BND0ZZ Release Right Middle Lung Lobe, Open Approach (ICD-10-PCS; 2017-10-24)
PROC: 07B70ZZ Excision of Thorax Lymphatic, Open Approach (ICD-10-PCS; 2017-10-24)
DX: A41.9 Sepsis, unspecified organism (principal); J86.9 Pyothorax without fistula; J96.01 Acute respiratory failure with hypoxia; I50.33 Acute on chronic diastolic (congestive) heart failure; G93.40 Encephalopathy, unspecified; E87.1 Hypo-osmolality and hyponatremia; N17.9 Acute kidney failure, unspecified; J90 Pleural effusion, not elsewhere classified; F17.203 Nicotine dependence unspecified, with withdrawal; F10.239 Alcohol dependence with withdrawal, unspecified; J98.11 Atelectasis; D62 Acute posthemorrhagic anemia; I11.0 Hypertensive heart disease with heart failure; K81.9 Cholecystitis, unspecified; E11.9 Type 2 diabetes mellitus without complications; J44.9 Chronic obstructive pulmonary disease, unspecified; F12.90 Cannabis use, unspecified, uncomplicated; K82.8 Other specified diseases of gallbladder; R19.7 Diarrhea, unspecified

== ENCOUNTER → 2018-01-12 12:49 | Outpatient (CLI) | payer OTHER ==
[2017-10-19 20:47] VITALS: BMI 36.0
[~2018-01-12 12:49] MED LIST: AUGMENTIN 875-11 TAB PO; BROVANA15 MCG/2 M INH; CARAFATE1 G PO; COREG12.5 MG PO; COZAAR100 MG PO; HCTZ25 MG PO; HYDRALAZINE HCL50 MG PO; IPRAT-ALBUT 0.5-3 ML UPD; MUCINEX DM ER1 EAC1 PO; MULTI-DAY VITAM1 TAB PO; NICODERM C1 PATCH .1 TRANSDERM; NORVASC10 MG PO; QUESTRAN PACK4 G/PKT PO; SPIRIVA18 MCG INH; SYMBICORT 80-10.2 GM INH; VENTOLIN HFA AER INH
== END | disposition home or self-care (01) ==
LOC: D.RAD 08:30
DX: J90 Pleural effusion, not elsewhere classified (principal)

== ENCOUNTER → 2018-06-19 12:19 | Outpatient (CLI) | payer OTHER ==
[2017-10-19 20:47] VITALS: BMI 36.0
== END | disposition home or self-care (01) ==
LOC: D.RAD 05-05 10:00 → D.RT 05-19 13:00 → D.LAB 05-19 13:00 → D.RAD 05-19 14:00 → D.RT 12:15
DX: J44.9 Chronic obstructive pulmonary disease, unspecified (principal)

== ENCOUNTER 2018-08-01 08:00 | Outpatient (CLI) | payer OTHER ==
[2017-10-19 20:47] VITALS: BMI 36.0
[2018-08-01] MEDS ORDERED: HYDRALAZINE HC100 MG PO (10:23)
[2018-08-01] MEDS ORDERED: BAYER CHEWABLE81 MG PO (10:27)
[2018-08-01] MEDS ORDERED: RANITIDINE HCL150 M1 PO (10:27)
[2018-08-01] MEDS ORDERED: LIPITOR40 MG PO (10:28)
[2018-08-01] MEDS ORDERED: HYDROCHLOROTHIA25 MG PO (10:30)
[2018-08-01 11:13] LABS: HEMATOCRIT 41.4 % (36.0-48.0); HEMOGLOBIN 13.9 g/dL (12-16); MCH 29.6 pg (26.0-34.0); MCHC 33.6 g/dL (31.0-37.0); MCV 88.3 fL (80.0-100.0); MEAN PLATELET VOLUME 11.5 fL (7.4-10.4); RBC 4.69 10x6/uL (4.00-5.40); RDW 14.1 % (11.5-14.5); WBC 10.4 10x3/uL (4.8-10.8)
[2018-08-17] MEDS ORDERED: [UNRECOGNIZED DRUG - OTHER] PO (14:59)
== END 2018-08-01 08:01 | disposition home or self-care (01) ==
LOC: D.OPS 08:00 → D.PAN 08-02 08:00 → EDSTATUS 08-02 08:00 → D.OPS 08-02 08:00
PROVIDERS: Anesthesiology; ATTEND Surgery
DX: K82.8 Other specified diseases of gallbladder (principal)

== ENCOUNTER 2018-08-18 05:19 | Day surgery (SDC) | payer OTHER ==
[~2018-08-18] VITALS: Ht 170.2 cm; Wt 108.9 kg
[~2018-08-18 05:19] MED LIST changes: +BAYER CHEWABLE81 MG PO; +HYDRALAZINE HC100 MG PO; +HYDROCHLOROTHIA25 MG PO; +LIPITOR40 MG PO; +RANITIDINE HCL150 M1 PO; +[UNRECOGNIZED DRUG - OTHER] PO
[2018-08-18 05:45] LABS: ANION GAP 14.1 mmol/L (8-16); CALCIUM 9.2 mg/dL (8.5-10.1); CARBON DIOXIDE 27.5 mmol/L (21.0-32.0); CREATININE - SERUM 1.5 mg/dL (0.6-1.3); HEMATOCRIT 39.6 % (36.0-48.0); HEMOGLOBIN 13.2 g/dL (12-16); MCH 29.1 pg (26.0-34.0); MCHC 33.3 g/dL (31.0-37.0); MCV 87.2 fL (80.0-100.0); MEAN PLATELET VOLUME 11.6 fL (7.4-10.4); POTASSIUM - SERUM 3.6 mmol/L (3.5-5.1); RBC 4.54 10x6/uL (4.00-5.40); WBC 10.1 10x3/uL (4.8-10.8)
[2018-08-18] MEDS ORDERED: CATAPRES0.1 MG (06:57)
[2018-08-18 07:17] VITALS: BP 108/64; Ht 170.2 cm; Wt 108.9 kg
--- NOTE | 2018-08-18 12:20 | NUR ---
ASSUMED PT. CARE. PT HAD RECEIVED ZOFRAN 4 MG IV FROM RECEIVING NURSE ITALO GUILLEN. ASSISTED TO THE BATHROOM. VOIDING WITHOUT DIFFICULTY. MOANING AND GROANING DURING TRANSFER. BACK TO BED AND ICE CHIPS BROUGHT TO PT. DRESSINGS DCI TO ABDOMINAL INCISIONS.
--- NOTE | 2018-08-18 13:00 | NUR ---
FL TRAY BROUGHT TO PT. RELATES IS WANTING WANTING SOMETHING TO EAT. STILL MOANING AND GROANING WANTING HER MOMMY. FRIEND/FAMILY AT BEDSIDE.
--- NOTE | 2018-08-18 13:13 | NUR ---
NORCO 5MG 2 TABS ADMINISTERED PO PER ORDERS FOR PAIN 10/30. STILL RELATES SOME NAUSEA. ALCOHOL SWAB GIVEN TO PT TO INHALE WHICH HELPS WITH NAUSEA. FRIEND/FAMILY AT BEDSIDE.
--- NOTE | 2018-08-18 13:50 | NUR ---
UP TO BATHROOM. VOIDING WITHOUT DIFFICULTY. CONTINUES TO MOAN AND SHAQ RELATING SHE WANTS HER MOMMY. RELATES SHE CAN HANDLE PAIN ANYWHERE BUT HER STOMACH. EXPLAINED TO PATIENT TO EXPECT SOME PAIN BECAUSE SHE JUST HAD SURGERY.
--- NOTE | 2018-08-18 14:50 | NUR ---
UP TO BATHROOM. TOLERATED MOVEMENT BETTER THIS TIME RATING HER PAIN 4/10. IV DC'D WITH CATHETER INTACT. WRITTEN AND VERBAL DC INST. GIVEN TO PT ALONG WITH RX. VERBALIZED UNDERSTANDING.
--- NOTE | 2018-08-18 15:10 | NUR ---
DC'D HOME WITH FAMILY/FRIEND VIA PRIVATE VEHICLE. TAKEN TO VEHICLE VIA WC. STABLE AT TIME OF DC.
--- NOTE | 2018-08-23 17:31 | OP ---
PATIENT NAME: ARGENIS LANCE MEDICAL RECORD: [id number] :63 LOCATION:D[facility] ADMISSION DATE: SURGEON: HAWA SANTIAGO MD DATE OF OPERATION: 08/18/2018 PREOPERATIVE DIAGNOSIS: Biliary dyskinesia. POSTOPERATIVE DIAGNOSES: Biliary dyskinesia with symptomatic gallstones and right upper quadrant adhesions also hepatomegaly. PROCEDURES: 1. Laparoscopic cholecystectomy. 2. Intraoperative cholangiography without immediate surgeon interpretation. 3. An 18-gauge core needle liver biopsy. SURGEON: Hawa Santiago MD ASSISTANT EDUCATION DIRECTOR: None. BLOOD LOSS: Minimal. ANESTHESIA: General. COMPLICATIONS: None. The risks, possible complications, and alternatives to the procedure were explained to the patient. She elects to proceed. OPERATIVE COURSE: The patient was conveyed to the operating room electively on 08/18/2017. General anesthesia was induced by anesthesia staff. The abdomen was sterilely prepped and draped. A small skin dorothy was accomplished in the left quadrant. A Veress needle was inserted through the skin dorothy into the peritoneal cavity. CO2 insufflation was begun. Once a sufficient pneumoperitoneum had been achieved, a 5-mm trocar was inserted in the right upper quadrant. Under direct internal vision utilizing a television camera, a 12-mm trocar was inserted through an incision at the umbilicus, another 5-mm trocar was inserted through an incision in the epigastrium, and another 5-mm trocar was inserted far laterally in the right upper quadrant. During insertion of the Veress needle and all trocars, there appeared to have been no injury to the bowels, any intraperitoneal or retroperitoneal structures. Adhesions were noted in the right upper quadrant. I did not attempt to take these down. These adhesions had cause the liver to be adhesed to the anterior abdominal wall. The indication for liver biopsy was hepatomegaly. Under laparoscopic guidance, I percutaneously accessed the right upper quadrant utilizing an 18-gauge core needle liver biopsy device. Cores were obtained over the convexity of the liver, but the biopsy sites were made hemostatic with electrocautery. I then advanced a cholangiogram trocar. I punctured the fundus of the gallbladder. I aspirated bile. I then injected dye. Real time cholangiographic images were obtained and are sent to the radiologist for interpretation. The cholangiogram trocar was then removed. Blunt dissection was begun in the triangle of Calot. One cystic artery and one cystic duct were identified. These were clipped multiply and divided between clips. OPERATIVE REPORT [id number] ARGENIS LANCE The gallbladder was then excised from its bed in the liver. It was placed within a bag retrieval device and was withdrawn through the umbilical fascia defect. The 12-mm trocar was placed and the abdomen reinsufflated. There was no bleeding even at low pressure of 8. A topical hemostatic agent was added to the gallbladder fossa for additional hemostasis. The 12-mm trocar was removed. The Mckay-Alaln suture closure device and 0 Vicryl sutures were used to close the umbilical fascia defect. The skin at the umbilicus was closed with interrupted 4-0 Vicryl Rapide sutures. The skin incisions were closed with interrupted intracuticular 3-0 Vicryls. Benzoin and Steri-Strips were applied. The patient was then extubated and conveyed to post-anesthesia care unit where she was in stable condition. She will be dismissed home on [place] for pain. I will see her in the office in 2-3 weeks. TRANSINT:[id number] Voice Confirmation ID: [id number] DOCUMENT ID: [id number] cc: Dr. Jo Kline HAWA SANTIAGO MD at 1731 CC: BOSSMAN THOMAS MD and JO KLINE [id number] DICTATION DATE: 08/18/18 1056 FELT HAT INSPECTOR AND PACKER: 08/18/18 1328 DEP [facility] 08/18/18 [place] [id number]
== END 2018-08-18 15:10 | disposition home or self-care (01) ==
LOC: D.OPS 05:19 → D.PAN 08:00 → D.OPS 15:10
PROVIDERS: Anesthesiology; ATTEND Surgery
DX: K80.10 Calculus of gallbladder with chronic cholecystitis without obstruction (principal); R16.0 Hepatomegaly, not elsewhere classified; Z01.812 Encounter for preprocedural laboratory examination